=== PATIENT | female | born 1955 | race Caucasian/White ===

== ENCOUNTER 2024-03-14 21:50 | Inpatient (IN) | payer MEDICARE, OTHER ==
[~2024-03-14] VITALS: Ht 147.3 cm; Wt 43.1 kg
[2024-03-14 22:46] LABS: APPEARANCE,URINE CLEAR (CLEAR); BILIRUBIN,URINE 1+ (NEGATIVE); BLOOD, URINE TRACE-INTA Ery/uL (NEGATIVE); COLOR,URINE YELLOW (YELLOW); KETONES,URINE 1+ mg/dL (NEGATIVE); LEUKOCYTE ESTERASE ,URINE NEGATIVE (NEGATIVE); NITRITE, URINE NEGATIVE (NEGATIVE); PROTEIN,URINE TRACE mg/dl (NEGATIVE); UGLUCOSE NEGATIVE (NEGATIVE); UROBILINOGEN,URINE 0.2 EU/dL (0.2)
[2024-03-14 23:07] LABS: BASOPHILS % (AUTO) 0.7 % (0.0-2.0); EOSINOPHILS # (AUTO) 0.1 K/uL (0.0-0.7); EOSINOPHILS % (AUTO) 2.6 % (0.0-6.0); HEMATOCRIT 34 % (33-45); HEMOGLOBIN 11.8 g/dL (11.5-14.8); LYMPHOCYTES # (AUTO) 1.1 K/uL (0.8-4.8); MEAN CORPUSCULAR HEMOGLOBIN 33 PG (26.0-33.0); MEAN CORPUSCULAR HGB CONC 34 g/dl (31.0-36.0); MEAN CORPUSCULAR VOLUME 97 fL (82-100); MONOCYTES # (AUTO) 0.4 K/uL (0.1-1.30); MONOCYTES % (AUTO) 9.2 % (2.0-12.0); NEUTROPHILS # (AUTO) 2.9 K/uL (1.8-8.9); NEUTROPHILS % (AUTO) 63.5 % (43.0-81.0); PLATELET COUNT (AUTO) 92 K/uL (150-450); RED BLOOD CELL COUNT(AUTO) 3.52 MIL/uL (4.0-5.2); RED CELL DISTRIBUTION WIDTH 13.4 % (11.5-15.0); WHITE BLOOD COUNT (AUTO) 4.5 K/uL (4.3-11.0)
[2024-03-14 23:28] LABS: ADD URINE CULTURE NO; BACTERIA,URINE Few /HPF (None Seen); MUCUS,URINE Few /LPF (None Seen); WBC,URINE NONE SEEN /HPF (0-3)
[2024-03-14 23:48] LABS: LACTIC ACID 1.4 mmol/L (0.4-2.0)
[2024-03-14 23:52] LABS: CREATININE 1.5 mg/dL (0.6-1.3); POTASSIUM 4.1 mmol/L (3.5-5.1)
[2024-03-14 23:58] LABS: BILIRUBIN,TOTAL 0.6 mg/dL (0.2-1.0); TOTAL PROTEIN, SERUM 6.7 g/dL (6.4-8.2)
[2024-03-15 01:16] LABS: EOSINOPHILS % (MANUAL) 2 % (0-4); LYMPHOCYTES % (MANUAL) 31 % (16-48); MONOCYTES % (MANUAL) 3 % (0-11.0); NEUTROPHILS % (MANUAL) 64 (42-76); PLATELET ESTIMATE DECREASED
[2024-03-15 01:57] LABS: CALCIUM, SERUM 9.1 mg/dL (8.5-10.1); CARBON DIOXIDE 21 mmol/L (21-32); CHLORIDE 103 mmol/L (98-107); CREATININE 1.5 mg/dL (0.6-1.3); GLUCOSE 174 mg/dL (74-106); POTASSIUM 4.2 mmol/L (3.5-5.1); SODIUM SERUM 136 mmol/L (136-145); UREA NITROGEN, BLOOD 36 mg/dL (7-18)
[2024-03-15 02:00] LABS: ALANINE AMINOTRANSFERASE 44 U/L (12-78); ALBUMIN 3.1 g/dL (3.4-5.0); ALKALINE PHOSPHATASE 228 U/L (46-116); ASPARTATE AMINOTRANSFERASE 36 U/L (15-37); BILIRUBIN,DIRECT 0.2 mg/dL (0.0-0.2); BILIRUBIN,TOTAL 0.6 mg/dL (0.2-1.0); TOTAL PROTEIN, SERUM 6.9 g/dL (6.4-8.2)
[2024-03-15 02:03] LABS: ACETAMINOPHEN < 2 ug/ml (10-30); ALCOHOL, BLOOD < 3 mg/dL (0-10); SALICYLATE 0.9 mg/dL (2.8-20.0)
[2024-03-15 03:06] LABS: APPEARANCE,URINE CLEAR (CLEAR); BILIRUBIN,URINE NEGATIVE (NEGATIVE); BLOOD, URINE NEGATIVE Ery/uL (NEGATIVE); COLOR,URINE YELLOW (YELLOW); KETONES,URINE NEGATIVE (NEGATIVE); LEUKOCYTE ESTERASE ,URINE TRACE (NEGATIVE); NITRITE, URINE NEGATIVE (NEGATIVE); PROTEIN,URINE NEGATIVE (NEGATIVE); UGLUCOSE NEGATIVE (NEGATIVE); UROBILINOGEN,URINE 0.2 EU/dL (0.2)
[2024-03-15 03:31] LABS: AMPHETAMINE, URINE NEGATIVE (NEGATIVE); BARBITURATE, URINE NEGATIVE (NEGATIVE); BENZODIAZEPINE, URINE NEGATIVE (NEGATIVE); CANNABINOID, URINE NEGATIVE (NEGATIVE); COCCAINE, URINE NEGATIVE (NEGATIVE); OPIATE, URINE NEGATIVE (NEGATIVE); PHENCYCLIDINE SCREEN,URINE NEGATIVE (NEGATIVE)
[2024-03-15 04:09] LABS: ADD URINE CULTURE NO; BACTERIA,URINE None seen /HPF (None Seen); RBC,URINE NONE SEEN /HPF (0-2)
[2024-03-15] MEDS ORDERED: METF750T46 PO (08:04)
[2024-03-15] MEDS ORDERED: STOOL SOFTENER PO (08:04)
[2024-03-15] MEDS ORDERED: CHOL100045 PO (08:04)
[2024-03-15] MEDS ORDERED: PROP20TA7 PO (08:04)
[2024-03-15] MEDS ORDERED: ESCI20TA PO (08:04)
[2024-03-15] MEDS ORDERED: MELA1TAB2 PO (08:04)
[2024-03-15] MEDS ORDERED: TYLENOL PO (08:04)
[2024-03-15] MEDS ORDERED: PRAV40TA3 PO (08:04)
[2024-03-15] MEDS ORDERED: SPIR25TA6 PO (08:04)
[2024-03-15] MEDS ORDERED: DONE10TA44 PO (08:04)
[2024-03-15] MEDS ORDERED: QUET50TA PO (08:04)
[2024-03-15] MEDS ORDERED: LORAZEPAM 0.5 MG TABLET PO PRN (09:30)
[2024-03-15] MEDS ORDERED: MAG HYDROX/AL HYDROX/SIMETH 30 ML UDC PO PRN (09:30)
[2024-03-15] MEDS ORDERED: MAGNESIUM HYDROXIDE 30 ML UDC PO PRN (09:30)
[2024-03-15 09:36] VITALS: BP 138/61; TEMP 97.5; O2SAT 100
[2024-03-15] MEDS: BLOOD SUGAR DIAGNOSTIC 1 EACH STRIP IN ONE (10:28)
[2024-03-15] MEDS: VENLAFAXINE XR 75 MG CAP.SR.24H PO SCH (13:28)
[2024-03-15] MEDS: VENLAFAXINE XR 37.5 MG CAP.SR.24H PO SCH (14:50)
[2024-03-15] MEDS: CEPHALEXIN MONOHYDRATE 250 MG CAPSULE PO SCH (14:50)
[2024-03-15 16:00] VITALS: BP 138/84; TEMP 97.9; O2SAT 98
[2024-03-15 20:00] VITALS: BP 124/57; TEMP 98.1; O2SAT 98
[2024-03-15] MEDS: QUETIAPINE FUMARATE 25 MG TABLET PO SCH (21:19)
[2024-03-15] MEDS: ATORVASTATIN 40 MG TABLET PO SCH (21:19)
[2024-03-15] MEDS: DONEPEZIL 5 MG TABLET PO SCH (21:19)
[2024-03-15] MEDS: ZOLPIDEM TARTRATE 5 MG TABLET PO PRN (21:52)
[2024-03-15 22:17] VITALS: BP 124/57; TEMP 98.1; O2SAT 99
[2024-03-16 08:00] VITALS: BP 119/71; TEMP 97.7; O2SAT 96
[2024-03-16 09:12] LABS: BILIRUBIN,TOTAL 0.9 mg/dL (0.2-1.0); CALCIUM, SERUM 9.3 mg/dL (8.5-10.1); CREATININE 1.1 mg/dL (0.6-1.3); POTASSIUM 4.4 mmol/L (3.5-5.1); TOTAL PROTEIN, SERUM 7.3 g/dL (6.4-8.2)
[2024-03-16] MEDS: CHOLECALCIFEROL 1,000 UNIT TABLET (VIT D3) PO SCH (09:28)
[2024-03-16] MEDS: PROPRANOLOL HCL 10 MG TABLET PO SCH (09:29)
[2024-03-16] MEDS: SPIRONOLACTONE 25 MG TABLET PO SCH (09:31)
[2024-03-16] MEDS: ACETAMINOPHEN 325 MG TABLET PO PRN (12:54)
[2024-03-16 16:00] VITALS: BP 118/60; TEMP 97.9; O2SAT 99
[2024-03-16 20:00] VITALS: BP 116/62; TEMP 97.6; O2SAT 96
[2024-03-17 08:00] VITALS: BP 116/53; TEMP 98; O2SAT 99
[2024-03-17 16:00] VITALS: BP_SYST 110; BP_SYST 116; BP_DIAS 53; BP_DIAS 68; TEMP 97.9; TEMP 98; O2SAT 98; O2SAT 99
[2024-03-17 20:00] VITALS: BP 114/58; TEMP 98.2; O2SAT 97
[2024-03-18 08:00] VITALS: BP 123/68; TEMP 98; O2SAT 100
[2024-03-18 16:00] VITALS: BP 108/65; TEMP 97.8; O2SAT 97
[2024-03-18 21:04] VITALS: BP 113/68; TEMP 97.9; O2SAT 97
[2024-03-19 08:00] VITALS: BP 126/70; TEMP 98; O2SAT 98
[2024-03-19 16:00] VITALS: BP 107/63; TEMP 98; O2SAT 95
[2024-03-19 22:21] VITALS: BP 116/62; TEMP 98; O2SAT 97
[2024-03-20 08:00] VITALS: BP 113/69; TEMP 97.8; O2SAT 100
[2024-03-20 16:00] VITALS: BP 124/66; TEMP 98.6; O2SAT 97
[2024-03-20 20:35] VITALS: BP 122/60; TEMP 98.1; O2SAT 98
[2024-03-21 08:00] VITALS: BP 123/59; TEMP 97.8; O2SAT 100
[2024-03-21 08:31] VITALS: BP 114/59
== END 2024-03-21 15:15 | DRG 885 ==
LOC: ER 21:55 → GPS 03-15 05:32
PROVIDERS: ADMIT Psychiatry & Neurology Psychiatry; ATTEND Nurse Practitioner Family
DX: F33.3 Major depressive disorder, recurrent, severe with psychotic symptoms (principal); N17.0 Acute kidney failure with tubular necrosis; F03.918 Unspecified dementia, unspecified severity, with other behavioral disturbance; F03.93 Unspecified dementia, unspecified severity, with mood disturbance; F03.94 Unspecified dementia, unspecified severity, with anxiety; E87.1 Hypo-osmolality and hyponatremia; N39.0 Urinary tract infection, site not specified; F29 Unspecified psychosis not due to a substance or known physiological condition; I10 Essential (primary) hypertension; Z79.899 Other long term (current) drug therapy; I25.10 Atherosclerotic heart disease of native coronary artery without angina pectoris; Z79.84 Long term (current) use of oral hypoglycemic drugs; Z73.9 Problem related to life management difficulty, unspecified; E88.09 Other disorders of plasma-protein metabolism, not elsewhere classified; E11.21 Type 2 diabetes mellitus with diabetic nephropathy; F39 Unspecified mood [affective] disorder
CPT/HCPCS: 36415; 71045-TC; 80048-TC; 80053-TC; 80061-TC; 80076-TC; 81001; 82140-TC; 82962-TC; 83605-TC; 84484-TC; 85025-TC; 87040-TC; 87081-TC; 97110-TC; 97116-TC; 97530-TC; G0480